=== PATIENT | female | born 1940 | race Caucasian/White ===

== ENCOUNTER 2016-08-23 20:48 | Emergency (ER) | payer OTHER ==
--- NOTE | 2016-08-23 23:00 | ED ORDER SUMMARY ---
..... Patient: ODALIS MCLEAN OrderSheet [facility] VisitID: [id number] [place] [address] 76y, F Registration Date/Time: 08/23/2016 ORDER SHEET Weight: 88.4 kg (stated) Allergies: No Known Drug Allergy GENERAL ORDERS: Manager Electrical (Continuous) (SOB) (21:18 08/23/2016 Arden Perla) (22:03 eGm R.N.) EKG - ER Stat (21:20 08/23/2016 Arden Perla) (21:35 CHagronn ER Automatic Packer Operator) Pulse oximeter (21:20 08/23/2016 Arden Perla) (22:03 Gem R.N.) Chest 2V Urgent (21:47 08/23/2016 Arden Perla) (Ack 21:51 CHagerty ER Automatic Packer Operator) (22:40 MCampbell) CBC w Diff Urgent (21:48 08/23/2016 Arden Perla) (Ack 21:51 CHagronn ER Automatic Packer Operator) (22:03 Gem BakerNTonio) BMP Urgent (21:48 08/23/2016 Arden Perla) (Ack 21:51 CHagronn ER Automatic Packer Operator) (22:03 Gem R.N.) Consult - Physician (21:48 08/23/2016 Arden Perla) (Cancelled: Other22:02 CHagerty ER Automatic Packer Operator) MEDICATION ORDERS: DuoNeb Neb Tx 1 unit dose (NOW) (21:48 08/23/2016 Arden Perla) (Ack 21:49 CHagerty ER Automatic Packer Operator) (22:02 Gem R.N.) Azithromycin PO 500 mg (NOW) (22:58 08/23/2016 Arden Perla) IV FLUIDS: Solu-MEDROL IV 125 mg (NOW) (21:48 08/23/2016 Arden Perla) (22:16 Gem R.N.) IV Saline Lock (21:48 08/23/2016 Arden Perla) (22:03 Gem R.NTonio) ORDER SHEET NOTES: [Electronically signed by Andre Wilson R.N. (04:16 08/24/2016)] [Electronically signed by Toby Wright Dr. (11:54 08/27/2016)] [Electronically locked/signed by Andre Wilson R.N. (04:16 08/24/2016)]
--- NOTE | 2016-08-23 23:00 | ED NURSING NOTES ---
Clinical Report - Nurses [facility] [address] [place] [address] 08/23/2016 20:48 Patient: ODALIS MCLEAN TRIAGE Triage time 21:00. Acuity: LEVEL 3. Chief Complaint: COUGH and RUNNY NOSE. --21:19 Ivory Pollard R.N. 21:00 08/23/16. BP: 133/70 taken on the right arm, via an automated monitor, while sitting. HR: 88 (regular, normal rate and strong). RR: 22. O2 saturation: 94% on room air. Temp: 98.3 F (oral). Pain level now: 0/10. --21:19 Ivory Pollard R.N. Weight: 88.4 kg stated. Height/Length: 61 inches Per Patient. BMI: 36.8. --21:17 Ivory Pollard R.N. Medications Hydroxychloroquine Sulfate Oral (Tablet 200 mg), q day. --21:03 Ivory Pollard R.N. Claritin Oral (Tablet 10 mg), daily. --21:03 Ivory Pollard R.N. Advair HFA Inhalation 500 mg, bid. --21:04 Ivory Pollard R.N. Spiriva HandiHaler Inhalation (Capsule 18 mcg), qday. --21:05 Ivory Pollard R.N. Calcium 500 Oral 1000mg , qday. --21:06 Ivory Pollard R.N. Multi-Day Oral 1 tab, q day. --21:06 Ivory Pollard R.N. Fish Oil Oral (Capsule 1000 mg) 1 capsule, q day. --21:07 Ivory Pollard R.N. Medication/allergy information source: the patient. --21:19 Ivory Pollard R.N. Allergies No Known Drug Allergy. --04:16 Andre Wilson R.N. The following entry was struck by Ivory Pollard R.N., 21:08 (08/23/16) Reason - wrong value. <<STRICKEN ENTRY-- Naprosyn. --21:08 Ivory Pollard R.N. --END STRIKE>>. History Arrived by private vehicle. Historian: patient. Accompanied by family. Onset. (2 days ago). She has had a nasal discharge, chest congestion and sinus pain. PAST MEDICAL HX: Immunizations: up-to-date. Denies current . SOCIAL HX: Former smoker, end date 2004. No alcohol use or drug use. FALL RISK ASSESSMENT: Fall risk assessment completed. No fall risk identified. NUTRITIONAL RISK ASSESSMENT: The nutritional risk assessment revealed no deficiencies. FUNCTIONAL ASSESSMENT: Functional assessment: no impairments noted. LEARNING NEEDS ASSESSMENT: The learning needs assessment revealed no barriers. SKIN INTEGRITY ASSESSMENT: Skin integrity risk assessment completed. No skin integrity risk identified. --21:19 Ivory Pollard R.N. PROBLEMS: Rheumatoid Arthritis [Chronic]. COPD - Chronic Obstructive Pulmonary Disease [Chronic]. --21:13 Ivory Pollard R.N. ADDITIONAL SURGERIES: Back Surgery. Hip surg. Knee Surgery. Lt arm surg. --21:13 Ivory Pollard R.N. Interventions ID band on patient. --21:19 Ivory Pollard R.N. NURSING PROGRESS NOTES EKG time: (2136 PM). EKG was ordered, performed by a tech and shown to the ED physician. --21:38 Jessy Milner 21:57 08/23/2016 Duoneb (Ipratropium-Albuterol) Neb TX Nebulizer 1 unit dose given. Given by the respiratory therapist. Allergies verified and confirmed 5 rights. --22:02 Andre Wilson R.N. 21:58 08/23/2016 Site #1 started via IV in the right forearm with an 22g angiocath; one attempt. Blood drawn: rainbow set. Saline lock flushed with 10 mL saline. --22:03 Andre Wilson R.N. 22:00 08/23/16. ( CXR in room). --22:19 Andre Wilson R.N. 22:05 08/23/2016 SOLU-MEDROL (MethylPREDNISolone Sodium Succ) IVP 125 mg given over 2 minute(s) via site #1. Allergies verified and confirmed 5 rights. IV patency established. IV site checked: no pain, redness, or swelling. IV flushed thoroughly pre- and post-medication administration. IVP given by RN. --22:16 Andre Wilson R.N. DISPOSITION / DISCHARGE 23:20 08/23/16. BP: 128/80. HR: 88. RR: 16. O2 saturation: 97% on room air. Temp: 99.3 F. Pain level now: 0. --04:12 Andre Wilson R.N. Departure time: 0. --04:12 Andre Wilson R.N. 23:20. Condition at departure: improved. No learning barriers present. Discharge instructions provided and reviewed with the patient. Reviewed medication(s) dosing information (prescription given to pt). Reviewed referral to family practice for followup. Patient verbalized understanding. Written instructions provided in Lithuanian. The patient was discharged by the physician. She was discharged home and accompanied by family. She left the Emergency Department ambulatory and via private vehicle. Family member driving. --04:15 Andre Wilson R.N. Locked/Released at 08/24/2016 4:16 by Andre Wilson R.N.
--- NOTE | 2016-08-23 23:00 | ED ORDER SUMMARY ---
..... Patient: ODALIS MCLEAN OrderSheet [facility] VisitID: [id number] [place] [address] 76y, F Registration Date/Time: 08/23/2016 ORDER SHEET Weight: 88.4 kg (stated) Allergies: No Known Drug Allergy GENERAL ORDERS: Scheduling Clerk (Continuous) (SOB) (21:18 08/23/2016 Arden Perla) (22:03 Gem R.N.) EKG - ER Stat (21:20 08/23/2016 Arden Perla) (21:35 CHagronn ER Furniture Upholstery Mechanic) Pulse oximeter (21:20 08/23/2016 Arden Perla) (22:03 Gem R.N.) Chest 2V Urgent (21:47 08/23/2016 Arden Perla) (Ack 21:51 CHagerty ER Furniture Upholstery Mechanic) (22:40 MCampbell) CBC w Diff Urgent (21:48 08/23/2016 Arden Perla) (Ack 21:51 CHagronn ER Furniture Upholstery Mechanic) (22:03 Gem BakerNTonio) BMP Urgent (21:48 08/23/2016 Arden Perla) (Ack 21:51 CHagronn ER Furniture Upholstery Mechanic) (22:03 Gem R.N.) Consult - Physician (21:48 08/23/2016 Arden Perla) (Cancelled: Other22:02 CHagerty ER Furniture Upholstery Mechanic) MEDICATION ORDERS: DuoNeb Neb Tx 1 unit dose (NOW) (21:48 08/23/2016 Arden Perla) (Ack 21:49 CHagerty ER Furniture Upholstery Mechanic) (22:02 Gem R.N.) Azithromycin PO 500 mg (NOW) (22:58 08/23/2016 Arden Perla) IV FLUIDS: Solu-MEDROL IV 125 mg (NOW) (21:48 08/23/2016 Arden Perla) (22:16 Gem R.N.) IV Saline Lock (21:48 08/23/2016 Arden Perla) (22:03 Gem R.NTonio) ORDER SHEET NOTES: [Electronically signed by Andre Wilson R.N. (04:16 08/24/2016)] [Electronically signed by Toby Wright Dr. (11:54 08/27/2016)] [Electronically locked/signed by Andre Wilson R.N. (04:16 08/24/2016)]
--- NOTE | 2016-08-23 23:00 | ED CLINICAL REPORT ---
Clinical Report - Physicians/Mid Levels [facility] [address] [place] [address] 08/23/2016 20:48 Patient: ODALIS MCLEAN Arrived- By private vehicle. Historian- patient. HISTORY OF PRESENT ILLNESS Chief Complaint: WHEEZING. This started today and is still present (staying the same). It was abrupt in onset and has been constant but is not gone now. The dyspnea is described as moderate. The patient has had a cough. She has had moderate amounts of yellow sputum. There has been a change from baseline. No chest pain or discomfort. See nurses notes for current asthma threapy. Asthma triggers: (spices and pollen). Takes asthma medications. (Family friend is over and cooking for them. Could have been the spices he is using). Similar symptoms previously: Recent medical care: Not recently seen/assessed. REVIEW OF SYSTEMS No sore throat, nasal discharge, sinus drainage, fever or chills. No muscle aches or skin rash. All systems otherwise negative, except as recorded above. PAST HISTORY See nurses notes. Medications: Fish Oil Oral (Capsule 1000 mg) 1 capsule, q day. Multi-Day Oral 1 tab, q day. Calcium 500 Oral 1000mg , qday. Spiriva HandiHaler Inhalation (Capsule 18 mcg), qday. Advair HFA Inhalation 500 mg, bid. Claritin Oral (Tablet 10 mg), daily. Hydroxychloroquine Sulfate Oral (Tablet 200 mg), q day. Allergies: No Known Drug Allergy. SOCIAL HISTORY Former smoker. No alcohol use or drug use. Is a local resident. ADDITIONAL NOTES The nursing notes have been reviewed. PHYSICAL EXAM Vital Signs: 08/23/2016 21:00 BP: 133/70. HR: 88. RR: 22. O2 saturation: 94%. Temp: 98.3 F. Pain level now: 0/10. Blood pressure normal. Oxygen saturation normal. Appearance: Alert. No acute distress. (non-toxic). Eyes: Pupils equal, round and reactive to light. Eyes normal inspection. ENT: Ears normal. Nose normal. Pharynx normal. Uvula midline. Neck: Normal inspection. Neck supple. CVS: Normal heart rate and rhythm. Heart sounds normal. Pulses normal. Respiratory: No respiratory distress. Expiratory moderate bilateral wheezes diffusely. Breath sounds normal. No stridor, rales or rhonchi. Abdomen: Soft and nontender. No organomegaly. Back: Normal inspection. Skin: Skin warm and dry. Normal skin color. No rash. Normal skin turgor. Extremities: Extremities exhibit normal ROM. No lower extremity edema. LABS, X-RAYS, AND EKG Chest X-ray: Normal heart size. Mediastinum normal. Great vessels normal. (no apical capping. bilateral infiltrates versus consolidations.). Views: PA and lateral. Technique: good. The X-rays were independently viewed by me and interpreted contemporaneously by me. Laboratory Tests: CBC w Diff: (IQRA: 08/23/2016 21:48) ( Mscvd 08/23/2016 22:23) Final results Test Result Flag Units (Reference) WHITE BLOOD COUNT 7.4 K/uL (4.5-11.5) RED BLOOD COUNT 4.38 M/uL (4.00-5.20) HEMOGLOBIN 12.3 gm/dL (12.0-16.0) HEMATOCRIT 37.4 % (36.0-46.0) MEAN CELL VOLUME 85 fL (80-100) MEAN CORPUSCULAR HGB 28 pg (26-34) MEAN CORPUSCULAR HGB CONC 33 g/dL (31-37) RED CELL DISTRIBUTION WIDTH 15.0 H % (11.6-14.8) PLATELET COUNT 229 K/uL (150-400) NEUTROPHIL % 58.6 % (50-75) LYMPH % 20.7 L % (25-40) MONO % 12.0 % (3-14) EOSINOPHIL % 7.0 H % (0-4) BASOPHIL % 1.7 % (0-2) BMP: (IQRA: 08/23/2016 21:48) ( MsgRcvd 08/23/2016 22:51) Final results Test Result Flag Units (Reference) GLUCOSE 99 mg/dL (70-110) BUN 20 H mg/dL (7-18) CREATININE 1.0 mg/dL (0.6-1.3) Estimated GFR 57.14 mL/min Estimated GFR- >60 mL/min Note: Persistent reduction over 3 months in eGFR<60 mL/min/1.73 m2 defines CKD. Patients with eGFR values>=60 mL/min/1.73 m2 may also have CKD if evidence ofpersistent proteinuria. Additional information may be foundat www.[email or web address].org. SODIUM 143 mmol/L (136-145) POTASSIUM 3.9 mmol/L (3.5-5.1) CHLORIDE 105 mmol/L (98-107) CARBON DIOXIDE 28 mmol/L (21-32) CALCIUM 8.7 mg/dL (8.5-10.1) . PROGRESS AND PROCEDURES Course of Care: The patient is a pleasant 76-year-old female presenting for evaluation of shortness of breath. Patient's wheezing on examination. Patient has a history of COPD. Patient likely having COPD exacerbation. Patient will be monitored closely here in the emergency department. Laboratory studies in including chest x-ray been ordered. Breathing treatment has also been ordered. We'll evaluate once the breathing treatment has been completed. Patient's workup for the chest x-ray shows possible atelectasis versus consolidations. No Other acute abnormalities noted. laboratory studies are also unremarkable. White blood cell count is noted to be at 7.4. Patient reports improvement with the breathing treatments. Steroids have also been ordered. On repeat examination, lungs are clear to auscultation bilaterally. No wheezing or crackles noted. Because of the patient's history of COPD and high risk for consultations, azithromycin will be provided in addition to steroid burst. Patient is a good outpatient candidate. Patient continues to be nontoxic in appearance. Vital signs are noted to be unremarkable. Patient is reliable and has adequate support. Discussed the patient workup, diagnosis, home care, follow-up, and return precautions. All questions answered. The patient expressed understanding of these instructions and was agreeable to them. Disposition: Discharged. Condition: good. CLINICAL IMPRESSION 08/23/2016 21:00 BP: 133/70. HR: 88. RR: 22. O2 saturation: 94%. Temp: 98.3 F. Pain level now: 0/10. Blood pressure normal. Oxygen saturation normal. Acute exacerbation of COPD (mild). INSTRUCTIONS Warnings: GENERAL WARNINGS: Return or contact your physician immediately if your condition worsens or changes unexpectedly, if not improving as expected, or if other problems arise. Specifically return if pain, vomiting, bleeding, breathing difficulty or fever. Your Current Medications: CONTINUE TAKING THE FOLLOWING MEDICATIONS: Advair HFA Inhalation : 500 mg bid. Calcium 500 Oral : 1000mg qday. Claritin Oral : Tablet 10 mg, daily. Fish Oil Oral : Capsule 1000 mg, 1 capsule q day. Hydroxychloroquine Sulfate Oral : Tablet 200 mg, q day. Multi-Day Oral : 1 tab q day. Spiriva HandiHaler Inhalation : Capsule 18 mcg, qday. Prescription Medications: Prednisone every day for 5 days. Dispense sufficient quantity. No refills. (60 mg) Zithromax Z-Cornell 500 mg tablets: Take according to package instructions. No refills. Substitution is permissible. Follow-up: Return to the emergency department as needed. Follow up with your doctor in three days. Reason for referral: recheck today's concerns. Summary of care provided to patient via paper. Screening today revealed the patient's blood pressure to be in the normal range. The patient should follow up with a primary care provider for blood pressure management. Understanding of the discharge instructions verbalized by patient. (Electronically signed by Toby Wright Dr. 08/27/2016 11:54)
--- NOTE | 2016-08-23 23:27 | DIAGNOSTIC IMAGING REPORT ---
PROCEDURE: XR CHEST 2 VIEW INDICATION: COPD TECHNIQUE: PA and lateral views. COMPARISON: None. FINDINGS: Minor scarring at the left lung base. Lungs are otherwise clear. Heart and mediastinum are normal. Mild degenerative change of the thoracic spine. Postoperative changes and fusion of the lumbar spine (partially visualized). IMPRESSION: 1. Negative chest.
--- NOTE | 2016-08-27 11:54 | ED DISCHARGE INSTRUCTIONS ---
Patient: ODALIS MCLEAN General Instructions [facility] VisitID: [id number] [place] [address] 76y, F Registration Date/Time: 08/23/2016 08/23/2016 21:00 BP: 133/70. HR: 88. RR: 22. O2 saturation: 94%. Temp: 98.3 F. Pain level now: 0/10. Blood pressure normal. Oxygen saturation normal. Acute exacerbation of COPD (mild). INSTRUCTIONS Warnings: GENERAL WARNINGS: Return or contact your physician immediately if your condition worsens or changes unexpectedly, if not improving as expected, or if other problems arise. Specifically return if pain, vomiting, bleeding, breathing difficulty or fever. Your Current Medications: CONTINUE TAKING THE FOLLOWING MEDICATIONS: Advair HFA Inhalation : 500 mg bid. Calcium 500 Oral : 1000mg qday. Claritin Oral : Tablet 10 mg, daily. Fish Oil Oral : Capsule 1000 mg, 1 capsule q day. Hydroxychloroquine Sulfate Oral : Tablet 200 mg, q day. Multi-Day Oral : 1 tab q day. Spiriva HandiHaler Inhalation : Capsule 18 mcg, qday. Prescription Medications: Prednisone every day for 5 days. Dispense sufficient quantity. No refills. (60 mg) Zithromax Z-Cornell 500 mg tablets: Take according to package instructions. No refills. Substitution is permissible. Follow-up: Return to the emergency department as needed. Follow up with your doctor in three days. Reason for referral: recheck today's concerns. Summary of care provided to patient via paper. Screening today revealed the patient's blood pressure to be in the normal range. The patient should follow up with a primary care provider for blood pressure management. Understanding of the discharge instructions verbalized by patient. ADDITIONAL INFORMATION COPD Flare Both emphysema and chronic bronchitis are forms of chronic obstructive pulmonary disease (COPD). It is most often caused by many years of smoking tobacco. Many things can make your lung disease suddenly get worse. These causes include the common cold, pneumonia, acute bronchitis, missing doses of your regular breathing medicines, or being around smoke, dust, or other air pollutants. A COPD flare may last 7 to 14 days. Your doctor may prescribe medicineto relax your airways and prevent wheezing. Your doctor may also prescribe antibiotics if he or she thinks you havea bacterial infection. Prednisone can helpease inflammation in a severe attack. Home care Here are things you can do at home: Drink lots of water or other fluids (at least 10 glasses a day) during an attack. This will loosen lung secretions and make it easier to breathe. If you have heart or kidney disease, check with your doctor before you drink extra amounts of fluids. Take prescribed medicine exactly at the times advised. If you have a hand-held inhaler or aerosol breathing medicine, don't use it more than once every 4 hours, unless your doctor tells you to. If you were givenan antibiotic or prednisone, take all of the medicine even if you are feeling better after a few days. Don't smoke. Avoid being aroundthe smoke of others. If you were given an inhaler, use it exactly as directed. If you need to use it more often than prescribed, your condition may be getting worse. Call your doctor. Follow-up care Follow up with your health care provider.If you are 65 or older or have chronic asthma or COPD, you should get a single dose of the pneumococcal vaccine and aflu shot each year. You may need a second dose of the pneumococcal vaccine if you had the first dose at a younger age. Your health care provider will let you know if you need a second dose. For all other people, the usual dose for the pneumococcal vaccine is 1 or 2 shots. Yourprovider can discuss this with you. When to seek medical care Get prompt medical attention ifany of these occur: Increased wheezing or shortness of breath Need to use your inhalers more often than usual without relief Fever of 100.4F(38C) or higher, or as directed by your health care provider Coughing up lots of dark-colored or bloody sputum (mucus) Chest pain with each breath You do not start to improve within 24 hours Prednisone Oral tablet What is this medicine? PREDNISONE (PRED ni sone) is a corticosteroid. It is commonly used to treat inflammation of the skin, joints, lungs, and other organs. Common conditions treated include asthma, allergies, and arthritis. It is also used for other conditions, such as blood disorders and diseases of the adrenal glands. How should I use this medicine? Take this medicine by mouth with a glass of water. Follow the directions on the prescription label. Take this medicine with food. If you are taking this medicine once a day, take it in the morning. Do not take more medicine than you are told to take. Do not suddenly stop taking your medicine because you may develop a severe reaction. Your doctor will tell you how much medicine to take. If your doctor wants you to stop the medicine, the dose may be slowly lowered over time to avoid any side effects. Talk to your job molder regarding the use of this medicine in children. Special care may be needed. What side effects may I notice from receiving this medicine? Side effects that you should report to your doctor or health manager intensive care unit as soon as possible: allergic reactions like skin rash, itching or hives, swelling of the face, lips, or tongue changes in emotions or moods changes in vision depressed mood eye pain fever or chills, cough, sore throat, pain or difficulty passing urine increased thirst swelling of ankles, feet Side effects that usually do not require medical attention (report to your doctor or health manager intensive care unit if they continue or are bothersome): confusion, excitement, restlessness headache nausea, vomiting skin problems, acne, thin and shiny skin trouble sleeping weight gain What may interact with this medicine? Do not take this medicine with any of the following medications: metyrapone mifepristone This medicine may also interact with the following medications: aminoglutethimide amphotericin B aspirin and aspirin-like medicines barbiturates certain medicines for diabetes, like glipizide or glyburide cholestyramine cholinesterase inhibitors cyclosporine digoxin diuretics ephedrine female hormones, like estrogens and control pills isoniazid ketoconazole NSAIDS, medicines for pain and inflammation, like ibuprofen or naproxen phenytoin rifampin toxoids vaccines warfarin What if I miss a dose? If you miss a dose, take it as soon as you can. If it is almost time for your next dose, talk to your doctor or health manager intensive care unit. You may need to miss a dose or take an extra dose. Do not take double or extra doses without advice. Where should I keep my medicine? Keep out of the reach of children. Store at room temperature between 15 and 30 degrees C (59 and 86 degrees F). Protect from light. Keep container tightly closed. Throw away any unused medicine after the expiration date. What should I tell my health care provider before I take this medicine? They need to know if you have any of these conditions: Yovana's syndrome diabetes glaucoma heart disease high blood pressure infection (especially a virus infection such as chickenpox, cold sores, or herpes) kidney disease liver disease mental illness myasthenia gravis osteoporosis seizures stomach or intestine problems thyroid disease an unusual or allergic reaction to lactose, prednisone, other medicines, foods, dyes, or preservatives or trying to get breast-feeding What should I watch for while using this medicine? Visit your doctor or health manager intensive care unit for regular checks on your progress. If you are taking this medicine over a prolonged period, carry an identification card with your name and address, the type and dose of your medicine, and your doctor's name and address. This medicine may increase your risk of getting an infection. Tell your doctor or health manager intensive care unit if you are around anyone with measles or chickenpox, or if you develop sores or blisters that do not heal properly. If you are going to have surgery, tell your doctor or health manager intensive care unit that you have taken this medicine within the last twelve months. Ask your doctor or health manager intensive care unit about your diet. You may need to lower the amount of salt you eat. This medicine may affect blood sugar levels. If you have diabetes, check with your doctor or health manager intensive care unit before you change your diet or the dose of your diabetic medicine. You have been given the following additional information: COPD Flare Prednisone Oral tablet (Electronically signed by Toby Wright Dr. 08/27/2016 11:54)
--- NOTE | 2016-08-27 11:54 | ED DISCHARGE INSTRUCTIONS ---
Patient: ODALIS MCLEAN General Instructions [facility] VisitID: [id number] [place] [address] 76y, F Registration Date/Time: 08/23/2016 08/23/2016 21:00 BP: 133/70. HR: 88. RR: 22. O2 saturation: 94%. Temp: 98.3 F. Pain level now: 0/10. Blood pressure normal. Oxygen saturation normal. Acute exacerbation of COPD (mild). INSTRUCTIONS Warnings: GENERAL WARNINGS: Return or contact your physician immediately if your condition worsens or changes unexpectedly, if not improving as expected, or if other problems arise. Specifically return if pain, vomiting, bleeding, breathing difficulty or fever. Your Current Medications: CONTINUE TAKING THE FOLLOWING MEDICATIONS: Advair HFA Inhalation : 500 mg bid. Calcium 500 Oral : 1000mg qday. Claritin Oral : Tablet 10 mg, daily. Fish Oil Oral : Capsule 1000 mg, 1 capsule q day. Hydroxychloroquine Sulfate Oral : Tablet 200 mg, q day. Multi-Day Oral : 1 tab q day. Spiriva HandiHaler Inhalation : Capsule 18 mcg, qday. Prescription Medications: Prednisone every day for 5 days. Dispense sufficient quantity. No refills. (60 mg) Zithromax Z-Cornell 500 mg tablets: Take according to package instructions. No refills. Substitution is permissible. Follow-up: Return to the emergency department as needed. Follow up with your doctor in three days. Reason for referral: recheck today's concerns. Summary of care provided to patient via paper. Screening today revealed the patient's blood pressure to be in the normal range. The patient should follow up with a primary care provider for blood pressure management. Understanding of the discharge instructions verbalized by patient. ADDITIONAL INFORMATION COPD Flare Both emphysema and chronic bronchitis are forms of chronic obstructive pulmonary disease (COPD). It is most often caused by many years of smoking tobacco. Many things can make your lung disease suddenly get worse. These causes include the common cold, pneumonia, acute bronchitis, missing doses of your regular breathing medicines, or being around smoke, dust, or other air pollutants. A COPD flare may last 7 to 14 days. Your doctor may prescribe medicineto relax your airways and prevent wheezing. Your doctor may also prescribe antibiotics if he or she thinks you havea bacterial infection. Prednisone can helpease inflammation in a severe attack. Home care Here are things you can do at home: Drink lots of water or other fluids (at least 10 glasses a day) during an attack. This will loosen lung secretions and make it easier to breathe. If you have heart or kidney disease, check with your doctor before you drink extra amounts of fluids. Take prescribed medicine exactly at the times advised. If you have a hand-held inhaler or aerosol breathing medicine, don't use it more than once every 4 hours, unless your doctor tells you to. If you were givenan antibiotic or prednisone, take all of the medicine even if you are feeling better after a few days. Don't smoke. Avoid being aroundthe smoke of others. If you were given an inhaler, use it exactly as directed. If you need to use it more often than prescribed, your condition may be getting worse. Call your doctor. Follow-up care Follow up with your health care provider.If you are 65 or older or have chronic asthma or COPD, you should get a single dose of the pneumococcal vaccine and aflu shot each year. You may need a second dose of the pneumococcal vaccine if you had the first dose at a younger age. Your health care provider will let you know if you need a second dose. For all other people, the usual dose for the pneumococcal vaccine is 1 or 2 shots. Yourprovider can discuss this with you. When to seek medical care Get prompt medical attention ifany of these occur: Increased wheezing or shortness of breath Need to use your inhalers more often than usual without relief Fever of 100.4F(38C) or higher, or as directed by your health care provider Coughing up lots of dark-colored or bloody sputum (mucus) Chest pain with each breath You do not start to improve within 24 hours Prednisone Oral tablet What is this medicine? PREDNISONE (PRED ni sone) is a corticosteroid. It is commonly used to treat inflammation of the skin, joints, lungs, and other organs. Common conditions treated include asthma, allergies, and arthritis. It is also used for other conditions, such as blood disorders and diseases of the adrenal glands. How should I use this medicine? Take this medicine by mouth with a glass of water. Follow the directions on the prescription label. Take this medicine with food. If you are taking this medicine once a day, take it in the morning. Do not take more medicine than you are told to take. Do not suddenly stop taking your medicine because you may develop a severe reaction. Your doctor will tell you how much medicine to take. If your doctor wants you to stop the medicine, the dose may be slowly lowered over time to avoid any side effects. Talk to your feed in worker regarding the use of this medicine in children. Special care may be needed. What side effects may I notice from receiving this medicine? Side effects that you should report to your doctor or health healthcare consultant as soon as possible: allergic reactions like skin rash, itching or hives, swelling of the face, lips, or tongue changes in emotions or moods changes in vision depressed mood eye pain fever or chills, cough, sore throat, pain or difficulty passing urine increased thirst swelling of ankles, feet Side effects that usually do not require medical attention (report to your doctor or health healthcare consultant if they continue or are bothersome): confusion, excitement, restlessness headache nausea, vomiting skin problems, acne, thin and shiny skin trouble sleeping weight gain What may interact with this medicine? Do not take this medicine with any of the following medications: metyrapone mifepristone This medicine may also interact with the following medications: aminoglutethimide amphotericin B aspirin and aspirin-like medicines barbiturates certain medicines for diabetes, like glipizide or glyburide cholestyramine cholinesterase inhibitors cyclosporine digoxin diuretics ephedrine female hormones, like estrogens and control pills isoniazid ketoconazole NSAIDS, medicines for pain and inflammation, like ibuprofen or naproxen phenytoin rifampin toxoids vaccines warfarin What if I miss a dose? If you miss a dose, take it as soon as you can. If it is almost time for your next dose, talk to your doctor or health healthcare consultant. You may need to miss a dose or take an extra dose. Do not take double or extra doses without advice. Where should I keep my medicine? Keep out of the reach of children. Store at room temperature between 15 and 30 degrees C (59 and 86 degrees F). Protect from light. Keep container tightly closed. Throw away any unused medicine after the expiration date. What should I tell my health care provider before I take this medicine? They need to know if you have any of these conditions: Yovana's syndrome diabetes glaucoma heart disease high blood pressure infection (especially a virus infection such as chickenpox, cold sores, or herpes) kidney disease liver disease mental illness myasthenia gravis osteoporosis seizures stomach or intestine problems thyroid disease an unusual or allergic reaction to lactose, prednisone, other medicines, foods, dyes, or preservatives or trying to get breast-feeding What should I watch for while using this medicine? Visit your doctor or health healthcare consultant for regular checks on your progress. If you are taking this medicine over a prolonged period, carry an identification card with your name and address, the type and dose of your medicine, and your doctor's name and address. This medicine may increase your risk of getting an infection. Tell your doctor or health healthcare consultant if you are around anyone with measles or chickenpox, or if you develop sores or blisters that do not heal properly. If you are going to have surgery, tell your doctor or health healthcare consultant that you have taken this medicine within the last twelve months. Ask your doctor or health healthcare consultant about your diet. You may need to lower the amount of salt you eat. This medicine may affect blood sugar levels. If you have diabetes, check with your doctor or health healthcare consultant before you change your diet or the dose of your diabetic medicine. You have been given the following additional information: COPD Flare Prednisone Oral tablet (Electronically signed by Toby Wright Dr. 08/27/2016 11:54)
--- NOTE | 2016-08-27 11:55 | ED MAR SUMMARY ---
..... Medication Administration Record [facility] [address] [place] [address] Patient: ODALIS MCLEAN Visit ID: [id number] 76y, F Weight: 88.4 kg Height/Length: 61 in BMI: 36.8 ALLERGIES: No Known Drug Allergy Given 21:57 08/23/2016 Andre Wilson RTonioN. Medication Administered: DUONEB [NEB TX] (IPRATROPIUM-ALBUTEROL), Dose: 1 unit dose Nebulizer Neb TX. Medication Ordered: DuoNeb Neb Tx 1 unit dose (NOW). Given 22:05 08/23/2016 Andre Wilson, RTonioN. Medication Administered: SOLU-MEDROL [IVP] (METHYLPREDNISOLONE SODIUM SUCC), Dose: 125 mg IVP over 2 minute(s), Site: #1 right forearm. Medication Ordered: Solu-MEDROL IV 125 mg (NOW).
--- NOTE | 2016-08-27 11:55 | ED MAR SUMMARY ---
..... Medication Administration Record [facility] [address] [place] [address] Patient: ODALIS MCLEAN Visit ID: [id number] 76y, F Weight: 88.4 kg Height/Length: 61 in BMI: 36.8 ALLERGIES: No Known Drug Allergy Given 21:57 08/23/2016 Andre Wilson RTonioN. Medication Administered: DUONEB [NEB TX] (IPRATROPIUM-ALBUTEROL), Dose: 1 unit dose Nebulizer Neb TX. Medication Ordered: DuoNeb Neb Tx 1 unit dose (NOW). Given 22:05 08/23/2016 Andre Wilson, RTonioN. Medication Administered: SOLU-MEDROL [IVP] (METHYLPREDNISOLONE SODIUM SUCC), Dose: 125 mg IVP over 2 minute(s), Site: #1 right forearm. Medication Ordered: Solu-MEDROL IV 125 mg (NOW).
--- NOTE | 2016-08-27 11:55 | ED MED RECONCILIATION SUMMARY ---
Patient: ODALIS MCLEAN Medication Reconciliation Report [facility] VisitID: [id number] [address] [place] [address] 76y, F Registration Date/Time: 08/23/2016 Weight: 88.4 kg Height/Length: 61 in. BMI: 36.8 ALLERGIES: No Known Drug Allergy The patient's Home Medications are listed below: CONTINUE TAKING THE FOLLOWING MEDICATIONS: Advair HFA Inhalation 500 mg, bid Calcium 500 Oral 1000mg , qday Claritin Oral (10 mg), daily Fish Oil Oral (1000 mg) 1 capsule, q day Hydroxychloroquine Sulfate Oral (200 mg), q day Multi-Day Oral 1 tab, q day Spiriva HandiHaler Inhalation (18 mcg), qday The source(s) of the original Home Medication information: patient The following Medications were given to the patient in the Emergency Department: Duoneb [Neb Tx] Neb TX 1 unit dose, administered: 08/23/2016 9:57:00 PM SOLU-MEDROL [IVP] IVP 125 mg, administered: 08/23/2016 10:05:00 PM The following Medications were prescribed to the patient: Prednisone every day for 5 days. Dispense sufficient quantity. No refills.(60 mg) -- Toby Wright Dr. Zithromax Z-Cornell 500 mg tablets: Take according to package instructions. No refills. Substitution is permissible. -- Toby Wright Dr.
--- NOTE | 2016-08-27 11:55 | ED MED RECONCILIATION SUMMARY ---
Patient: ODALIS MCLEAN Medication Reconciliation Report [facility] VisitID: [id number] [address] [place] [address] 76y, F Registration Date/Time: 08/23/2016 Weight: 88.4 kg Height/Length: 61 in. BMI: 36.8 ALLERGIES: No Known Drug Allergy The patient's Home Medications are listed below: CONTINUE TAKING THE FOLLOWING MEDICATIONS: Advair HFA Inhalation 500 mg, bid Calcium 500 Oral 1000mg , qday Claritin Oral (10 mg), daily Fish Oil Oral (1000 mg) 1 capsule, q day Hydroxychloroquine Sulfate Oral (200 mg), q day Multi-Day Oral 1 tab, q day Spiriva HandiHaler Inhalation (18 mcg), qday The source(s) of the original Home Medication information: patient The following Medications were given to the patient in the Emergency Department: Duoneb [Neb Tx] Neb TX 1 unit dose, administered: 08/23/2016 9:57:00 PM SOLU-MEDROL [IVP] IVP 125 mg, administered: 08/23/2016 10:05:00 PM The following Medications were prescribed to the patient: Prednisone every day for 5 days. Dispense sufficient quantity. No refills.(60 mg) -- Toby Wright Dr. Zithromax Z-Cornell 500 mg tablets: Take according to package instructions. No refills. Substitution is permissible. -- Toby Wright Dr.
== END 2016-08-23 23:30 | disposition home or self-care (01) ==
LOC: ED SRH 20:48
DX: J44.1 Chronic obstructive pulmonary disease with (acute) exacerbation (principal); Z79.51 Long term (current) use of inhaled steroids; Z79.899 Other long term (current) drug therapy; Z87.891 Personal history of nicotine dependence
CPT/HCPCS: 90047; 95059